=== PATIENT | male | born 1975 ===

== ENCOUNTER 2023-04-21 23:14 | Emergency (ER) | payer MEDICARE, MEDICAID ==
[~2023-04-21] VITALS: Ht 185.4 cm; Wt 95.5 kg
[2023-04-22 01:17] LABS: COVID AG,FIA SOURCE NASAL SWAB
[2023-04-22 01:17] LABS: BASOPHILS % (AUTO) 0.4 % (0.0-2.0); HEMOGLOBIN 14.2 g/dL (13.5-17.5); LYMPHOCYTES # (AUTO) 2.4 K/uL (1.0-4.8); MONOCYTES # (AUTO) 0.9 K/uL (0.1-1.0); NEUTROPHILS # (AUTO) 8.1 K/uL (1.8-7.7); WHITE BLOOD COUNT (AUTO) 11.5 K/uL (4.5-11.0)
[2023-04-22 01:21] LABS: EOSINOPHILS % (AUTO) 0.2 % (1.0-6.0); HEMATOCRIT 41.3 % (41-53); LYMPHOCYTES % (AUTO) 21.2 % (22.0-44.0); MEAN CORPUSCULAR HEMOGLOBIN 30.1 pg (26.0-34.0); MEAN CORPUSCULAR HGB CONC 34.3 G/dL (31.0-37.0); MEAN CORPUSCULAR VOLUME 88 fL (80-100); MONOCYTES % (AUTO) 7.6 % (2.0-9.0); NEUTROPHILS % (AUTO) 70.6 % (40.0-70.0); PLATELET COUNT (AUTO) 244 K/uL (150-450); RED CELL DISTRIBUTION WIDTH 13.2 % (11.5-14.5)
[2023-04-22 01:25] LABS: ANION GAP 7 mmol/L (8-16); CALCIUM, TOTAL 9.2 mg/dL (8.8-10.5); CARBON DIOXIDE 29 mmol/L (22-29); CHLORIDE 101 mmol/L (98-107); CREATININE 0.97 mg/dL (0.60-1.30); GLOMERULAR FILTR. RATE CALC > 60 mL/min (>60); GLUCOSE,RANDOM 106 mg/dL (70-110); POTASSIUM 3.9 mmol/L (3.5-5.1); SODIUM SERUM 137 mmol/L (136-145); UREA NITROGEN, BLOOD 11 mg/dL (7-18)
[2023-04-22 01:32] LABS: ALANINE AMINOTRANSFERASE 40 U/L (12-78); ALKALINE PHOSPHATASE 55 U/L (46-116); ASPARTATE AMINOTRANSFERASE 49 U/L (15-37); BILIRUBIN,TOTAL 0.8 mg/dL (0.1-1.0); TOTAL PROTEIN, SERUM 7.4 g/dL (6.4-8.2)
[2023-04-22 01:34] LABS: SARS-COV2 (COVID) ANTIGEN,FIA Negative (Negative)
[2023-04-22 01:38] LABS: ALCOHOL, BLOOD (SERUM) < 3 mg/dL (0-10)
[2023-04-22 06:17] VITALS: TEMP 98.7
[2023-04-22 13:15] VITALS: BP 110/70; PULSE 80; RESP 20
[2023-04-23] MEDS ORDERED: NALT50TA PO (20:57)
[2023-04-23] MEDS ORDERED: OMEG-135 PO (20:57)
[2023-04-23] MEDS ORDERED: LAMO-24 PO (20:57)
[2023-04-23] MEDS ORDERED: SERT-440 PO (20:57)
[2023-04-23] MEDS ORDERED: MELA5TAB40 PO (20:57)
[2023-04-23] MEDS ORDERED: PREG50 PO (20:57)
[2023-04-23] MEDS ORDERED: BUPR-113 PO (20:57)
== END 2023-04-22 13:40 ==
LOC: EMS 23:15
DX: F31.9 Bipolar disorder, unspecified (principal); Z20.822 Contact with and (suspected) exposure to COVID-19
CPT/HCPCS: 99285; 87426; 80053; 85025; G0480